=== PATIENT | female | born 1950 | race Caucasian/White ===

== ENCOUNTER 2017-05-17 08:28 | Inpatient (IN) | payer MEDICARE, OTHER ==
[~2017-05-17] VITALS: Ht 160 cm; Wt 91.6 kg
[~2017-05-17 08:28] MED LIST: IBUPROFEN600 MG ORAL; LOSARTAN-HCTZ1 EAC1 ORAL; METOPROLOL TART25 MG ORAL; TAMIFLU75 MG PO; VASCEPA1 GM PO
--- NOTE | 2017-05-17 08:54 | Emergency Room Report ---
History of Present Illness General Chief Complaint: Abdominal Pain Source: Patient, Medical Record Present Illness HPI Patient presents with complaints of blood in the stool and lower abdominal pain Patient has been on oral antibiotics for several days for an intestinal infection Patient also was having right-sided flank pain several days ago Denies any chest pain Denies any shortness of breath pain in the lower abdomen is 7/10 Patient has increased nausea Denies any vomiting or diarrhea denies any fevers or chills Allergies: Coded Allergies: No Known Allergies (Unverified , 09/22/12) Patient History Past Medical History: see triage record Pertinent Family History: none Reviewed Nursing Documentation: PMH: Agreed, PSxH: Agreed Nursing Documentation-PMH Past Medical History: No History, Except For Hx Cardiac Problems: Yes Hx Hypertension: Yes Hx Pacemaker: No Hx Cancer: No Hx Gastrointestinal Problems: Yes - gastritis Hx Neurological Problems: No Hx Cerebrovascular Accident: No Hx Transient Ischemic Attacks: No Hx Dementia: No Hx Alzheimer's Disease: No Hx Parkinson's Disease: No Hx Meningitis: No Hx Encephalitis: No Hx Seizures: No Hx Epilepsy: No Hx Multiple Sclerosis: No Hx Cerebral Palsy: No Hx Amyotrophic Lat Sclerosis: No Hx Guillian-[place] Syndrome: No Hx Paralysis: No Hx Peripheral Neuropathy: No Hx Spinal Cord Injury: No Hx Head Trauma: No Hx Traumatic Brain Injury: No Hx Memory Loss: No Hx Concentration Difficulty: No Hx Speech Problem: No Hx Tremors: No Hx Vertigo: No Hx Dizziness: Yes Hx Syncope: No Hx Headaches: No Hx Aphasia: No Hx Dysphasia: No Hx Numbness: No Hx Weakness: No Hx Fatigue: No Hx Neurologic Surgery: No Hx Brain Shunt: No Review of Systems All Other Systems: negative except mentioned in HPI Physical Exam Vital Signs Date Time Temp Pulse Resp B/P (MAP) Pulse Ox O2 Delivery O2 Flow Rate FiO2 05/17/17 08:31 97.5 75 20 151/83 98 Room Air Sp02 EP Interpretation: reviewed, normal General Appearance: mild distress - Patient appears uncomfortable and in acute pain Head: normocephalic, atraumatic Eyes: bilateral eye PERRL, bilateral eye EOMI ENT: hearing grossly normal, normal pharynx, TMs + canals normal, uvula midline Neck: full range of motion, supple, no meningismus, no bony tend Respiratory: lungs clear, normal breath sounds, no rhonchi, no respiratory distress, no retraction, no accessory muscle use Cardiovascular #1: normal peripheral pulses, regular rate, rhythm, no edema, no gallop, no JVD, no murmur Gastrointestinal: normal bowel sounds, soft, no mass, no organomegaly, non- distended, no guarding, no hernia, no pulsatile mass, no rebound, tenderness - Patient is tender diffusely in the lower abdominal region no obvious rebound, patient has had a previous appendectomy, bowel sounds are present Rectal: other - blood in stool, no active hemmorrhage Genitourinary: no CVA tenderness Musculoskeletal: normal inspection Neurologic: oriented x3, responsive, control room helper III-XII nml as tested, motor strength/ tone normal, sensory intact Psychiatric: mood/affect normal Skin: warm/dry, palpation normal, other - poor turgor Lymphatic: normal inspection, no adenopathy Medical Decision Making Diagnostic Impression: Primary Impression: Abdominal pain Additional Impression: Pancreatitis ER Course Patient is a fairly complex patient with multiple differential to consideration including but not limited to cardiac cardiopulmonary and vascular emergencies Patient's blood work reveals elevated lipase level concerning for acute pancreatitis Patient's CT imaging does not reveal any obvious acute pathology Patient has had significant constipation Given the overall clinical evaluation patient's discomfort blood in the stool and the abnormal blood work patient is admitted for further inpatient care Labs Test 05/17/17 08:55 05/17/17 11:17 White Blood Count 6.0 K/UL (4.8-10.8) Red Blood Count 4.70 M/UL (4.20-5.40) Hemoglobin 13.0 G/DL (12.0-16.0) Hematocrit 39.5 % (37.0-47.0) Mean Corpuscular Volume 84 FL (80-99) Mean Corpuscular Hemoglobin 27.7 PG (27.0-31.0) Mean Corpuscular Hemoglobin Concent 32.9 G/DL (32.0-36.0) Red Cell Distribution Width 13.7 % (11.6-14.8) Platelet Count 254 K/UL (150-450) Mean Platelet Volume 5.5 FL (6.5-10.1) Neutrophils (%) (Auto) 53.0 % (45.0-75.0) Lymphocytes (%) (Auto) 37.2 % (20.0-45.0) Monocytes (%) (Auto) 5.2 % (1.0-10.0) Eosinophils (%) (Auto) 3.7 % (0.0-3.0) Basophils (%) (Auto) 1.0 % (0.0-2.0) Sodium Level 137 mEQ/L (135-145) Potassium Level 4.6 mEQ/L (3.4-4.9) Chloride Level 100 mEQ/L (98-107) Carbon Dioxide Level 24 mEQ/L (20-30) Anion Gap 13 (5-15) Blood Urea Nitrogen 20 mg/dL (7-23) Creatinine 1.0 mg/dL (0.5-0.9) Estimat Glomerular Filtration Rate 55.1 mL/min (>60) Glucose Level 135 mg/dL (74-106) Calcium Level 9.3 mg/dL (8.6-10.2) Total Bilirubin 0.7 mg/dL (0.0-1.2) Aspartate Amino Transf (AST/SGOT) 25 U/L (5-40) Alanine Aminotransferase (ALT/SGPT) 17 U/L (3-33) Alkaline Phosphatase 94 U/L (35-104) Total Protein 7.4 g/dL (6.6-8.7) Albumin 4.0 g/dL (3.5-5.2) Globulin 3.4 g/dL Albumin/Globulin Ratio 1.1 (1.0-2.7) Lipase 111 U/L (< 60) Urine Color Pale yellow Urine Appearance Clear Urine pH 8 (4.5-8.0) Urine Specific [place] 1.010 (1.005-1.035) Urine Protein Negative (NEGATIVE) Urine Glucose (UA) Negative (NEGATIVE) Urine Ketones Negative (NEGATIVE) Urine Occult Blood Negative (NEGATIVE) Urine Nitrite Negative (NEGATIVE) Urine Bilirubin Negative (NEGATIVE) Urine Urobilinogen Normal MG/DL (0.0-1.0) Urine Leukocyte Esterase Negative (NEGATIVE) CT/MRI/US Diagnostic Results CT/MRI/US Diagnostic Results : Impression CT abdomen pelvisImpression: Limited assessment of the GI tract due to lack of enteric contrast Mild rectal distention by stool, mild rectal fecal impaction not excludable Large hiatal hernia, also previously demonstrated Fatty liver Somewhat distended bladder Nonvisualized appendix. No findings to suggest acute appendicitis Left renal parapelvic cysts. Right renal subcentimeter low-attenuation lesion, too small to characterize, most likely benign simple cyst. 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 May 17, 2017 08:54
[2017-05-17 09:00] VITALS: BP 136/76
[2017-05-17] MEDS ORDERED: Morphine Sulfate 4mg/ml Inj IVP ONE (09:00)
[2017-05-17 09:29] LABS: EOSINOPHILS % (AUTO) 3.7 % (0.0-3.0); LYMPHOCYTES % (AUTO) 37.2 % (20.0-45.0); MEAN CORPUSCULAR HEMOGLOBIN 27.7 PG (27.0-31.0); MEAN CORPUSCULAR HGB CONC 32.9 G/DL (32.0-36.0); MEAN CORPUSCULAR VOLUME 84 FL (80-99); MEAN PLATELET VOLUME 5.5 FL (6.5-10.1); MONOCYTES % (AUTO) 5.2 % (1.0-10.0); PLATELET COUNT 254 K/UL (150-450); RED CELL DISTRIBUTION WIDTH 13.7 % (11.6-14.8)
[2017-05-17 09:37] LABS: ALBUMIN/GLOBULIN RATIO 1.1 (1.0-2.7); CALCIUM 9.3 mg/dL (8.6-10.2); GLOMERULAR FILTRATION RATE 55.1 mL/min (>60); POTASSIUM 4.6 mEQ/L (3.4-4.9); TOTAL PROTEIN 7.4 g/dL (6.6-8.7)
[2017-05-17] MEDS ORDERED: LEVOTHYROXINE25 MCG PO (10:40)
[2017-05-17] MEDS ORDERED: LOSARTAN-HCTZ1 EACH PO (10:40)
[2017-05-17] MEDS ORDERED: BUSPAR10 MG PO (10:40)
[2017-05-17] MEDS ORDERED: OMEPRAZOLE20 M2 PO (10:40)
[2017-05-17] MEDS ORDERED: INDERAL20 MG PO (10:40)
--- NOTE | 2017-05-17 10:51 | Diagnostic Imaging Report ---
Clinical Indication: Blood in stool and lower abdominal pain, right-sided flank pain Technique: No oral contrast utilized, per emergency room physician request IV administration nonionic contrast. Venous phase spiral acquisition obtained through the abdomen and pelvis. Multiplanar reconstructions were generated. Total dose length product 918 mGycm. CTDIvol(s) 19 mGy. Dose reduction achieved using automated exposure control Comparison: 11/20/2010 Findings: Lack of enteric contrast limits assessment of the GI tract. The rectum is mildly distended by stool. This is a new finding. No evidence of diverticulosis or diverticulitis. The appendix is not definitely identified. However, there are no findings to suggest acute appendicitis. No small bowel distention. No free or loculated intraperitoneal air or fluid. Large hiatal hernia is again demonstrated. The remainder of the stomach is unremarkable. The duodenum is unremarkable. As previously, the liver is diffusely hypoattenuating, consistent with fatty change. No focal abnormality. The gallbladder, bile ducts, pancreas on the spleen, adrenals are unremarkable. The right kidney demonstrates a subcentimeter low-attenuation lesion which is too small to characterize. The left kidney demonstrates numerous parapelvic cysts. No solid renal parenchymal abnormalities. No renal or ureteral calculi, hydronephrosis, or hydroureter. The bladder is somewhat distended. The uterus and adnexal structures are unremarkable. No pelvic mass or adenopathy. The included lung bases are clear. The bones are remarkable for the presence multiple thoracic vertebral body hemangiomas. Impression: Limited assessment of the GI tract due to lack of enteric contrast Mild rectal distention by stool, mild rectal fecal impaction not excludable Large hiatal hernia, also previously demonstrated Fatty liver Somewhat distended bladder Nonvisualized appendix. No findings to suggest acute appendicitis Left renal parapelvic cysts. Right renal subcentimeter low-attenuation lesion, too small to characterize, most likely benign simple cyst. 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
[2017-05-17 11:00] VITALS: BP 101/73
[2017-05-17] MEDS ORDERED: Fleet's Enema 133ml RECTAL ONE ×2 (11:00→16:00)
[2017-05-17 11:37] LABS: APPEARANCE,URINE CLEAR; KETONES,URINE NEGATIVE (NEGATIVE); LEUKOCYTE ESTERASE ,URINE NEGATIVE (NEGATIVE); NITRITE,URINE NEGATIVE (NEGATIVE); PH,URINE 8 (4.5-8.0); PROTEIN,URINE NEGATIVE (NEGATIVE); UROBILINOGEN,URINE NORMAL MG/DL (0.0-1.0)
[2017-05-17 12:07] VITALS: BP 97/47
[2017-05-17] MEDS ORDERED: Morphine Sulfate 2mg/ml Inj IVP PRN (13:15)
[2017-05-17] MEDS: Fluconazole 100mg tab ORAL SCH (15:29)
[2017-05-17 16:00] VITALS: BP 119/60
--- NOTE | 2017-05-17 17:44 | General Progress Note ---
Assessment/Plan Assessment/Plan GI Consult - dictation to follow - poor historian, due to language barrier and apparent anxiety - Chronic constipation and vague abd pain - rectal bleeding likely hemorrhoidal - s/p EGD/Colon 01/2013 - negative CT. Doubt mild elevation of lipase significant Recommendations - bowel regimen - Mag citrate in am - check stool OB - get prior colonoscopy report next week from Dr. Deandre Lui - will consider repeat colonoscopy as outpatient Thank you Deshawn Carrington MD Subjective Allergies: Coded Allergies: No Known Allergies (Unverified , 09/22/12) Objective Last 24 Hour Vital Signs Date Time Temp Pulse Resp B/P (MAP) Pulse Ox O2 Delivery O2 Flow Rate FiO2 05/17/17 12:18 60 16 97/67 99 Room Air 05/17/17 12:07 97.3 60 18 97/47 97 Room Air 05/17/17 11:00 97.8 63 19 101/73 99 Room Air 05/17/17 09:38 97.8 05/17/17 09:00 98.2 76 25 136/76 99 Room Air 05/17/17 08:31 97.5 75 20 151/83 98 Room Air Intake and Output 05/17/17 05/18/17 19:00 07:00 Output Total 820 ml Balance -820 ml Output Urine Total 820 ml # Bowel Movements 1 Laboratory Tests 05/17/17 08:55: White Blood Count 6.0, Red Blood Count 4.70, Hemoglobin 13.0, Hematocrit 39.5, Mean Corpuscular Volume 84, Mean Corpuscular Hemoglobin 27.7, Mean Corpuscular Hemoglobin Concent 32.9, Red Cell Distribution Width 13.7, Platelet Count 254, Mean Platelet Volume 5.5L, Neutrophils (%) (Auto) 53.0, Lymphocytes (%) (Auto) 37.2, Monocytes (%) (Auto) 5.2, Eosinophils (%) (Auto) 3.7H, Basophils (%) (Auto ) 1.0, Sodium Level 137, Potassium Level 4.6, Chloride Level 100, Carbon Dioxide Level 24, Anion Gap 13, Blood Urea Nitrogen 20, Creatinine 1.0H, Estimat Glomerular Filtration Rate 55.1, Glucose Level 135H, Calcium Level 9.3, Total Bilirubin 0.7, Aspartate Amino Transf (AST/SGOT) 25, Alanine Aminotransferase (ALT/SGPT) 17, Alkaline Phosphatase 94, Total Protein 7.4, Albumin 4.0, Globulin 3.4, Albumin/Globulin Ratio 1.1, Lipase 111H 05/17/17 11:17: Urine Color Pale yellow, Urine Appearance Clear, Urine pH 8, Urine Specific [place] 1.010, Urine Protein Negative, Urine Glucose (UA) Negative, Urine Ketones Negative, Urine Occult Blood Negative, Urine Nitrite Negative, Urine Bilirubin Negative, Urine Urobilinogen Normal, Urine Leukocyte Esterase Negative Height (Feet): 5 Height (Inches): 3.00 Weight (Pounds): 202 PAODESHAWN CASTRO May 17, 2017 17:44
[2017-05-17] MEDS: Docusate 100mg cap ORAL SCH (20:28)
[2017-05-17] MEDS ORDERED: MICONAZOLE VAG VAGIN SCH (21:00)
[2017-05-17] MEDS ORDERED: Miralax 17gm pkt ORAL PRN (21:00)
[2017-05-17] MEDS: Miconazole Vag Cr 45gm Tube VAGIN SCH (22:24)
[2017-05-18] VITALS: BP 128/60
[2017-05-18 04:00] VITALS: BP 122/65
--- NOTE | 2017-05-18 06:00 | History and Physical Report ---
DATE OF ADMISSION: 05/17/2017 Reason For Admission: Abdominal pain and bright red blood per rectum. History Of Present Illness: This is a Beninese female, age 67, has a history of chronic constipation. She has had several days of abdominal pain in the lower quadrants. She noted some worsening symptoms this morning and some stool with blood on it. She denies nausea, vomiting, or dizziness. She was seen in the emergency room and admitted for further management. The patient had a colonoscopy in the last two years at [facility] by Dr. Deandre Salinas. She apparently did not have any significant findings. She does have chronic constipation however. Past Medical History: Further notable for hypothyroidism, on replacement therapy, osteoarthritis, and hypertension. MEDICATIONS: Prior to admission, reviewed and reconciled. ALLERGIES: None. SOCIAL HISTORY: Negative for smoking, alcohol, or substance abuse. FAMILY HISTORY: Noncontributory. Review Of Systems: No fevers or chills. No cough or sputum production. No loss of vision or hearing. No history of asthma or blood clots in the legs. No history of pancreatitis. No history of rheumatoid arthritis. No history of rheumatic fever. No history of myocardial infarction. Her hypertension is managed with medication. She has had elevated cholesterol in the past. There is no history of seizure or stroke. There is no history of diabetes. She is on low-dose thyroid replacement. PHYSICAL EXAMINATION: Vital Signs: Blood pressure 136/76 earlier, now 97/67, heart rate 60, and respiratory 16. Afebrile. HEENT: Normocephalic and atraumatic. Conjunctivae are pink. Sclerae are anicteric. Oropharynx clear. Mucous membranes moist. NECK: Supple. Jugular venous pressure normal. LUNGS: Clear. Chest wall without deformity. No breast masses. Cardiac: Regular rhythm and rate. Normal S1 and S2 with no murmur, rub, or gallop. Abdomen: Soft. Mildly tender in the lower quadrants bilaterally. No guarding or rebound. No pulsatile masses. EXTREMITIES: Good pulses. No edema. NEUROLOGIC: Nonfocal. Laboratory And Diagnostic Data: EKG, sinus bradycardia with no acute abnormalities. White count 6 and hemoglobin 13. BUN 20, creatinine 1.0, and glucose 135. Urinalysis with no active sediment. Lipase 111. IMPRESSION: 1. Abdominal pain. CT scan of the abdomen was negative. 2. Hemorrhoids. 3. Constipation. 4. Elevated lipase level of unclear significance. 5. Sinus bradycardia due to beta-enrique therapy. 6. Mild hypovolemia and dehydration with low range blood pressure in the setting of hypertension. PLAN: 1. Intravenous fluid hydration. 2. Serial hemoglobin. 3. Liquid diet. 4. GI consultation. 5. Hold antihypertensives. 6. Fluid challenge with lower range blood pressure. 7. Check thyroid panel. 8. We will review records from [facility] for definitive results of recent colonoscopy and endoscopy. Uziel Ybarra M.D. DR: JUSTICE JOB#: [id number] CC:
[2017-05-18] MEDS: Levothyroxine 25mcg tab ORAL SCH (06:44)
--- NOTE | 2017-05-18 06:45 | Consultation ---
DATE OF CONSULTATION: 05/17/2017 GASTROLOGY CONSULTATION Chief Complaint: "I was asked to see this patient for evaluation of abdominal issues." History Of Present Illness: The patient is a 67-year-old Omani woman, who speaks very broken Wolof with the daughter at bedside, who comes into the hospital due to abdominal issues. The patient is somewhat vague, but apparently she has had a longstanding history of constipation dating back years. She has had endoscopy and colonoscopy about a year ago by Dr. Deandre Lui in January at the surgical center. The results are not available, but the patient was not told about anything significant. More recently, she had some bouts of abdominal pain, which she worked up as an outpatient. She was given some antibiotics because of blood in the urine, but then subsequently noted some blood in the stool, which was scant in amount. She came to the emergency room here to [facility] and her blood count was normal, but she was admitted for further workup and evaluation. The patient's main complaint now is constipation and some abdominal discomfort. She also has some of red blood in the stool. Past Medical History: Remarkable for history of gastritis, history of coronary syndrome, abdominal gas pains, history of pancreatitis, anxiety, hypertension, hypothyroidism, and gastritis. FAMILY HISTORY: Noncontributory. Social History: The patient is O[place]i speaking and lives in [facility] [place] with her daughter. Medications: Acetaminophen, docusate, Diflucan, magnesium citrate, miconazole, morphine, and MiraLAX. ALLERGIES: None. REVIEW OF SYSTEMS: Otherwise negative. PHYSICAL EXAMINATION: General: Pleasant Omani woman, seen in the room with her daughter at bedside. HEENT: Normocephalic and atraumatic. Sclerae anicteric. Oropharynx clear. NECK: Supple. CHEST: Clear to auscultation. CARDIOVASCULAR: Regular rate. Abdomen: Obese, soft with some right lower quadrant. Mild tenderness to palpation. EXTREMITIES: Revealed no edema. Rectal Exam: Done in the presence of a nurse. It was difficult due to patient's anxiety and jumping during the exam. A proper exam could not be performed. Laboratory And Diagnostic Data: Laboratory data and imaging studies were noted. Assessment: This patient presents with what appears to be chronic constipation and perhaps some degree of chronic abdominal discomfort due to this process. She has had some hematochezia, which is scant and red in color and appears to be hemorrhoidal in nature. The patient complains of perianal irritation and does not want to get laxatives tonight, but she will accept some for tomorrow. In the meantime, her abdominal exam and laboratory parameters will be followed. I will try to obtain her colonoscopy result next week and if necessary can be repeated as an outpatient. The patient may need long-term bowel regimen. Recommendations: Per above discussion and per orders written in the chart. Thank you for asking me to participate in the care of this patient. Deshawn Carrington M.D. DR: PRECIOUS JOB#: [id number] CC: MARCELINA
[2017-05-18 06:47] LABS: BASOPHILS % (AUTO) 0.7 % (0.0-2.0); EOSINOPHILS % (AUTO) 2.9 % (0.0-3.0); LYMPHOCYTES % (AUTO) 46.9 % (20.0-45.0); MEAN CORPUSCULAR HEMOGLOBIN 27.9 PG (27.0-31.0); MEAN CORPUSCULAR HGB CONC 32.6 G/DL (32.0-36.0); MEAN CORPUSCULAR VOLUME 86 FL (80-99); MEAN PLATELET VOLUME 5.3 FL (6.5-10.1); MONOCYTES % (AUTO) 6.7 % (1.0-10.0); NEUTROPHILS % (AUTO) 42.8 % (45.0-75.0); PLATELET COUNT 218 K/UL (150-450); RED BLOOD COUNT 4.12 M/UL (4.20-5.40); RED CELL DISTRIBUTION WIDTH 13.9 % (11.6-14.8); WHITE BLOOD COUNT 5.7 K/UL (4.8-10.8)
[2017-05-18] MEDS ORDERED: Magnesium Citrate Liq Btl ORAL ONE (07:00)
[2017-05-18 07:17] LABS: ALANINE AMINOTRANSFERASE 13 U/L (3-33); ALBUMIN/GLOBULIN RATIO 1.3 (1.0-2.7); AMYLASE 27 U/L (10-110); ANION GAP 11 (5-15); ASPARTATE AMINO TRANSFERASE 16 U/L (5-40); CALCIUM 8.3 mg/dL (8.6-10.2); CARBON DIOXIDE 26 mEQ/L (20-30); CHLORIDE 105 mEQ/L (98-107); CREATININE 0.9 mg/dL (0.5-0.9); GLOMERULAR FILTRATION RATE > 60 mL/min (>60); HEMOLYSIS 2; LIPASE 64 U/L (< 60); POTASSIUM 3.7 mEQ/L (3.4-4.9); SODIUM 142 mEQ/L (135-145); TOTAL PROTEIN 6.1 g/dL (6.6-8.7)
[2017-05-18 09:15] VITALS: BP 107/53
--- NOTE | 2017-05-18 09:17 | General Progress Note ---
Assessment/Plan Problem List: (1) Anemia ICD Codes: D64.9 - Anemia, unspecified SNOMED: 473932125 (2) Constipation ICD Codes: K59.00 - Constipation, unspecified SNOMED: 20866617 (3) Abdominal pain ICD Codes: R10.9 - Unspecified abdominal pain SNOMED: 82181412 Assessment/Plan anemia work up laxatives out patient GI procedures per Dr. Jimenez Subjective ROS Limited/Unobtainable: Yes Allergies: Coded Allergies: No Known Allergies (Unverified , 09/22/12) Subjective had a BM feeling better Objective Last 24 Hour Vital Signs Date Time Temp Pulse Resp B/P (MAP) Pulse Ox O2 Delivery O2 Flow Rate FiO2 05/18/17 04:00 97.2 76 18 122/65 94 Room Air 05/18/17 00:00 97.9 70 18 128/60 93 Room Air 05/17/17 22:54 97.9 05/17/17 16:00 97.9 71 19 119/60 95 Room Air 05/17/17 12:18 60 16 97/67 99 Room Air 05/17/17 12:07 97.3 60 18 97/47 97 Room Air 05/17/17 11:00 97.8 63 19 101/73 99 Room Air 05/17/17 09:38 97.8 Laboratory Tests 05/17/17 11:17: Urine Color Pale yellow, Urine Appearance Clear, Urine pH 8, Urine Specific [place] 1.010, Urine Protein Negative, Urine Glucose (UA) Negative, Urine Ketones Negative, Urine Occult Blood Negative, Urine Nitrite Negative, Urine Bilirubin Negative, Urine Urobilinogen Normal, Urine Leukocyte Esterase Negative 05/18/17 05:35: White Blood Count 5.7, Red Blood Count 4.12L, Hemoglobin 11.5L, Hematocrit 35.2L , Mean Corpuscular Volume 86, Mean Corpuscular Hemoglobin 27.9, Mean Corpuscular Hemoglobin Concent 32.6, Red Cell Distribution Width 13.9, Platelet Count 218, Mean Platelet Volume 5.3L, Neutrophils (%) (Auto) 42.8L, Lymphocytes (%) (Auto) 46.9H, Monocytes (%) (Auto) 6.7, Eosinophils (%) (Auto) 2.9, Basophils (%) (Auto) 0.7, Sodium Level 142, Potassium Level 3.7, Chloride Level 105, Carbon Dioxide Level 26, Anion Gap 11, Blood Urea Nitrogen 16, Creatinine 0.9, Estimat Glomerular Filtration Rate > 60, Glucose Level 110H, Calcium Level 8.3L, Total Bilirubin 0.7, Aspartate Amino Transf (AST/SGOT) 16, Alanine Aminotransferase (ALT/SGPT) 13, Alkaline Phosphatase 90, Total Protein 6.1L, Albumin 3.5, Globulin 2.6, Albumin/Globulin Ratio 1.3, Amylase Level 27, Lipase 64H, Thyroid Stimulating Hormone (TSH) 2.850 05/18/17 07:00: Stool Occult Blood [Pending] Height (Feet): 5 Height (Inches): 3.00 Weight (Pounds): 202 General Appearance: alert EENT: normal ENT inspection Neck: supple Cardiovascular: normal rate Respiratory/Chest: lungs clear Abdomen: normal bowel sounds, non tender, soft Extremities: non-tender GENARO WHITFIELD May 18, 2017 09:17
[2017-05-18] MEDS: Docusate 100mg cap ORAL SCH ×2 (11:43→17:40)
[2017-05-18] MEDS: Fluconazole 100mg tab ORAL SCH (11:43)
[2017-05-18 13:04] VITALS: BP 108/55
[2017-05-18 17:51] VITALS: BP 121/62
[2017-05-18 20:00] VITALS: BP 132/63
[2017-05-18] MEDS: Miconazole Vag Cr 45gm Tube VAGIN SCH (20:48)
[2017-05-19] VITALS: BP 102/50
[2017-05-19 04:00] VITALS: BP 110/53
--- NOTE | 2017-05-19 06:00 | Progress Note ---
INTERNAL MEDICINE PROGRESS NOTE Subjective: The patient had a bowel movement. She feels better. Of note, all pain has decreased significantly. The patient does complain of some dyspepsia and acid sensation in the morning. OBJECTIVE: Vital Signs: Blood pressure 122/65, pulse 76, respiratory rate 18, afebrile. NECK: Supple. LUNGS: Clear. CARDIAC: Regular normal S1, S2. ABDOMEN: Soft. No focal tenderness. No edema. LABORATORY DATA: Lipase 64, amylase normal, TSH 2.5. IMPRESSION: 1. Constipation. 2. Abdominal pain. 3. Gastroesophageal reflux. PLAN: 1. Follow up occult blood test of the stool. 2. Continue hydration and bowel regimen. 3. Add proton pump inhibitor. 4. We will review prior records regarding colonoscopy findings and endoscopy findings done by Dr. Salinas in the past. 5. Discharge planning to follow. 6. Serial hemoglobin levels will be checked. Uziel Ybarra M.D. DR: SUHAIL JOB#: [id number] CC:
[2017-05-19] MEDS: Levothyroxine 25mcg tab ORAL SCH (06:38)
[2017-05-19 07:46] LABS: BASOPHILS % (AUTO) 1.3 % (0.0-2.0); EOSINOPHILS % (AUTO) 3.7 % (0.0-3.0); LYMPHOCYTES % (AUTO) 46.3 % (20.0-45.0); MEAN CORPUSCULAR HEMOGLOBIN 27.2 PG (27.0-31.0); MEAN CORPUSCULAR HGB CONC 31.6 G/DL (32.0-36.0); MEAN CORPUSCULAR VOLUME 86 FL (80-99); MEAN PLATELET VOLUME 5.5 FL (6.5-10.1); MONOCYTES % (AUTO) 5.6 % (1.0-10.0); NEUTROPHILS % (AUTO) 43.2 % (45.0-75.0); PLATELET COUNT 220 K/UL (150-450); RED BLOOD COUNT 4.39 M/UL (4.20-5.40); RED CELL DISTRIBUTION WIDTH 13.9 % (11.6-14.8); WHITE BLOOD COUNT 4.7 K/UL (4.8-10.8)
[2017-05-19 08:00] VITALS: BP 117/50
[2017-05-19] MEDS: Docusate 100mg cap ORAL SCH (08:17)
[2017-05-19] MEDS: Fluconazole 100mg tab ORAL SCH (08:17)
--- NOTE | 2017-05-19 09:57 | General Progress Note ---
Assessment/Plan Problem List: (1) Anemia ICD Codes: D64.9 - Anemia, unspecified SNOMED: 749881190 (2) Constipation ICD Codes: K59.00 - Constipation, unspecified SNOMED: 52147678 (3) Abdominal pain ICD Codes: R10.9 - Unspecified abdominal pain SNOMED: 21274213 Assessment/Plan anemia work up laxatives out patient GI procedures per Dr. Jimenez patient to dc with linzess Subjective ROS Limited/Unobtainable: Yes Allergies: Coded Allergies: No Known Allergies (Unverified , 09/22/12) Subjective had a BM feeling better Objective Last 24 Hour Vital Signs Date Time Temp Pulse Resp B/P (MAP) Pulse Ox O2 Delivery O2 Flow Rate FiO2 05/19/17 08:00 97.5 64 17 117/50 94 Room Air 05/19/17 04:00 97.3 68 18 110/53 92 Room Air 05/19/17 00:00 97.3 69 18 102/50 92 Room Air 05/18/17 20:00 97.7 65 18 132/63 94 Room Air 05/18/17 17:51 98.4 64 18 121/62 95 Room Air 05/18/17 13:04 87.9 64 19 108/55 96 Room Air Laboratory Tests 05/19/17 05:20: White Blood Count 4.7L, Red Blood Count 4.39, Hemoglobin 12.0, Hematocrit 37.8, Mean Corpuscular Volume 86, Mean Corpuscular Hemoglobin 27.2, Mean Corpuscular Hemoglobin Concent 31.6L, Red Cell Distribution Width 13.9, Platelet Count 220, Mean Platelet Volume 5.5L, Neutrophils (%) (Auto) 43.2L, Lymphocytes (%) (Auto) 46.3H, Monocytes (%) (Auto) 5.6, Eosinophils (%) (Auto) 3.7H, Basophils (%) ( Auto) 1.3, Iron Level 42, Total Iron Binding Capacity 337, Percent Iron Saturation 12L, Unsaturated Iron Binding 295, Carcinoembryonic Antigen 0.5 Height (Feet): 5 Height (Inches): 3.00 Weight (Pounds): 202 General Appearance: alert EENT: normal ENT inspection Neck: supple Cardiovascular: normal rate Respiratory/Chest: lungs clear Abdomen: normal bowel sounds, non tender, soft Extremities: non-tender VOSOGHI,GENARO May 19, 2017 09:57
[2017-05-19] MEDS ORDERED: COLACE100 MG ORAL (11:39)
[2017-05-19] MEDS ORDERED: ZANTAC150 MG ORAL (11:40)
[2017-05-19] MEDS ORDERED: MIRALAX17 G2 ORAL (11:40)
[2017-05-19] MEDS ORDERED: LINZESS145 MCG PO (11:41)
[2017-05-19 12:00] VITALS: BP 123/63
--- NOTE | 2017-05-19 15:56 | Cardiology Report ---
APPROVED REPORT EKG Measurement Heart [id number] Sinus bradycardia Otherwise normal ECG
--- NOTE | 2017-05-21 08:28 | Discharge Summary ---
Discharge Summary Hospital Course Date of Admission May 17, 2017 at 10:32 Date of Discharge May 19, 2017 at 12:36 Admitting Diagnosis abdominal pain, pancreatitis HPI Tejal Daugherty is a 67 year old female who was admitted on May 17, 2017 at 10:32 for Abdominal Pain,Pancreatitis Hospital Course dc summary #[id number] Discharge Medications Continued Medications: Buspirone Hcl* (Buspar*) 10 Mg Tablet 10 MG PO BID Docusate Sodium* (Colace*) 100 Mg Capsule 100 MG ORAL DAILY, CAP Ibuprofen* (Motrin*) 600 Mg Tablet 600 MG ORAL Q8H PRN for For Pain, #20 TAB Icosapent Ethyl (Vascepa) 1 Gm Capsule 1 GM PO BID, CAP Levothyroxine Sodium* (Levothyroxine Sodium*) 25 Mcg Tablet 25 MCG PO DAILY Linaclotide (Linzess) 145 Mcg Capsule 145 MCG PO, CAP Losartan/Hydrochlorothiazide (Losartan-Hctz 100-25 Mg Tab) 1 Each Tablet 1 TAB ORAL DAILY, TAB Losartan/Hydrochlorothiazide (Losartan-Hctz 100-12.5 Mg Tab) 1 Each Tablet MG PO DAILY Metoprolol Tartrate* (Metoprolol Tartrate*) 25 Mg Tablet 25 MG ORAL DAILY, TAB Omeprazole (Omeprazole) 20 Mg Capsule.dr 20 MG PO BID Oseltamivir Phosphate (Tamiflu) 75 Mg Cap 75 MG PO BID, #10 CAP Take 1 capsule by mouth every 12 hours. Polyethylene Glycol 3350* (Miralax*) 17 Gm Powd.pack 17 GM ORAL DAILY PRN for Constipation, PACKET Propranolol HCl (Propranolol HCl) 20 Mg Tablet 20 MG PO DAILY Ranitidine Hcl* (Zantac*) 150 Mg Tablet 150 MG ORAL DAILY, #30 TAB 0 Refills Discharge Condition Upon Discharge: stable Discharge Disposition Patient was discharged to Home (01) Discharge Diagnoses: Discharge Instructions Discharge Instructions Special Instructions I have been assigned to complete a D/C Summary on this account. I was not involved in the patient management Jovita Rogers NP (Vanchtein) May 21, 2017 08:28
--- NOTE | 2017-05-22 09:16 | Discharge Summary 2 SIG ---
DATE OF ADMISSION: 05/17/2017 DATE OF DISCHARGE: 05/19/2017 Reason For Admission: 67-year-old Welsh-speaking female with a history of chronic constipation presented with abdominal pain in lower quadrant for few days. She noted worsening symptoms and in the morning noted blood in the stool. She denied nausea, vomiting, dizziness. She denied fever and chills. The patient had a colonoscopy in [address] [facility] without any significant findings as per patient. Past medical history significant for hypertension, osteoarthritis, and hypothyroidism. The patient admitted to having chronic constipation. Workup in the emergency room was essentially negative. No leukocytosis. Stable hemoglobin and hematocrit. CT of the abdomen and pelvis revealed mild rectal distention by stool, mild rectal fecal impaction was not excludable, large hiatal hernia, fatty liver, otherwise no significant findings. Noted elevated liapse ADMITTING DIAGNOSES: : 1. Abdominal pain. 2. Chronic constipation. 3. Rectal bleeding, likely hemorrhoidal. 4. Sinus bradycardia, likely related to beta-enrique therapy. 5. Elevated lipase of unknown significance. 6. Dehydration. Hospital Course: The patient was admitted. The patient was started on IV fluids. Fluid challenge provided for low blood pressure. Antihypertensive medications were on hold. Blood pressure stabilized. The patient was started on the liquid diet as tolerated. Hemoglobin and hematocrit were closely monitored. GI specialist seen and evaluated the patient. CT of the abdomen and pelvis was reviewed by GI specialist, who stated that it was essentially negative. The patient was started on PPI. Stool OB was positive x1. Bowel regimen instituted. Pain management was addressed . Patient had bowel movement, no further hematochezia. Noted small decrease in the hemoglobin and hematocrit. Anemia workup revealed stable iron. CEA within normal limits. TSH within normal limits. Lipase trending down from 111 on admission to 64. The patient was discharged on Linzess, specifically designed for chronic constipation. The patient was stable for discharge home. The patient to followup with GI for outpatient GI procedure. FINAL DIAGNOSES: 1. Abdominal pain. 2. Chronic constipation. 3. Rectal bleeding likely hemorrhoidal. 4. Dehydration, resolved 5. Mild anemia. 6. Gastroesophageal reflux disease. DISCHARGE MEDICATIONS: See medication reconciliation list. Discharge Instructions: The patient was discharged home. Followup with primary medical doctor. Followup with GI specialist for outpatient GI procedure. Uziel Ybarra M.D. I have been assigned to dictate discharge summary on this account and I was not involved in the patient's management. Jovita HainesCorbin davalos DR: CARLIE JOB#: [id number] CC: MARCELINA
== END 2017-05-19 12:36 | disposition home or self-care (01) | DRG 392 ==
LOC: EMR 08:54 → 4W 10:32 → EDBEDREQ 11:03
DX: R10.9 Unspecified abdominal pain (principal); K76.0 Fatty (change of) liver, not elsewhere classified; R00.1 Bradycardia, unspecified; D64.9 Anemia, unspecified; K59.09 Other constipation; K64.9 Unspecified hemorrhoids; E86.0 Dehydration; E86.1 Hypovolemia; K21.9 Gastro-esophageal reflux disease without esophagitis
CPT/HCPCS: 36415; 74177; 80053; 81003; 82150; 82270; 82378; 83540; 83550; 83690; 84443; 85025; 93005; 99285; J2405

== ENCOUNTER 2019-05-12 14:47 | Emergency (ER) | payer MEDICARE, OTHER ==
[~2019-05-12] VITALS: Ht 160 cm; Wt 72.6 kg
[~2019-05-12 14:47] MED LIST changes: +BUSPAR10 MG PO; +COLACE100 MG ORAL; +INDERAL20 MG PO; +LEVOTHYROXINE25 MCG PO; +LINZESS145 MCG PO; +LOSARTAN-HCTZ1 EACH PO; +MIRALAX17 G2 ORAL; +OMEPRAZOLE20 M2 PO; +ZANTAC150 MG ORAL
[2019-05-12] MEDS ORDERED: AMOXICILLI250 MG/5 M ORAL (15:21)
[2019-05-12] MEDS ORDERED: ACETAMINOPHEN-1 EAC1 ORAL (15:21)
[2019-05-12] MEDS ORDERED: LINZESS145 MCG PO (15:21)
[2019-05-12] MEDS ORDERED: VIBRAMYCIN100 MG ORAL (15:21)
[2019-05-12] MEDS ORDERED: Isovue-300 100ml vial INJ PRN (15:45)
[2019-05-12] MEDS ORDERED: Morphine Sulfate 4mg/ml Inj (IV USE ONLY) IVP ONE (15:45)
[2019-05-12 15:54] VITALS: BP 143/55
[2019-05-12 16:43] VITALS: BP 143/55
[2019-05-12 16:51] LABS: BASOPHILS % (AUTO) 0.8 % (0.0-2.0); EOSINOPHILS % (AUTO) 1.4 % (0.0-3.0); HEMOGLOBIN 13.2 G/DL (12.0-16.0); LYMPHOCYTES % (AUTO) 34.1 % (20.0-45.0); MEAN CORPUSCULAR VOLUME 74 FL (80-99); MONOCYTES % (AUTO) 2.6 % (1.0-10.0); NEUTROPHILS % (AUTO) 61.1 % (45.0-75.0); PLATELET COUNT 262 K/UL (150-450); RED BLOOD COUNT 5.37 M/UL (4.20-5.40); WHITE BLOOD COUNT 10.1 K/UL (4.8-10.8)
[2019-05-12 17:04] LABS: ANION GAP 13 mmol/L (5-15); BLOOD UREA NITROGEN 18 mg/dL (7-18); CALCIUM 9.5 MG/DL (8.5-10.1); CARBON DIOXIDE 21 MMOL/L (21-32); CHLORIDE 106 MMOL/L (98-107); CREATININE 0.9 MG/DL (0.55-1.30); POTASSIUM 4.8 MMOL/L (3.5-5.1); SODIUM 140 MMOL/L (136-145)
[2019-05-12 17:05] LABS: APPEARANCE,URINE CLEAR; BILIRUBIN, URINE NEGATIVE (NEGATIVE); COLOR,URINE PALE YELLOW; GLUCOSE, URINE (UA) NEGATIVE (NEGATIVE); KETONES,URINE NEGATIVE (NEGATIVE); LEUKOCYTE ESTERASE ,URINE 2+ (NEGATIVE); NITRITE,URINE NEGATIVE (NEGATIVE); PH,URINE 7 (4.5-8.0); PROTEIN,URINE NEGATIVE (NEGATIVE); UROBILINOGEN,URINE NORMAL MG/DL (0.0-1.0)
[2019-05-12 17:09] LABS: ALANINE AMINOTRANSFERASE 34 U/L (12-78); ALBUMIN 3.9 G/DL (3.4-5.0); ALBUMIN/GLOBULIN RATIO 1.1 (1.0-2.7); ALKALINE PHOSPHATASE 105 U/L (46-116); ASPARTATE AMINO TRANSFERASE 38 U/L (15-37); BILIRUBIN,TOTAL 0.2 MG/DL (0.2-1.0)
--- NOTE | 2019-05-12 18:11 | Diagnostic Imaging Report ---
Clinical Indication: Abdominal pain, constipation, back pain, nausea Technique: No oral contrast utilized, per emergency room physician request IV administration nonionic contrast. Venous phase spiral acquisition obtained through the abdomen and pelvis. Multiplanar reconstructions were generated. Total dose length product 1018.52 mGycm. CTDIvol(s) 19.28 mGy. Dose reduction achieved using automated exposure control Comparison: 05/17/2017 Findings: Large hiatal hernia is again demonstrated, incompletely included. No small bowel distention. No free or loculated intraperitoneal gas or fluid is evident. Mild to moderate retained stool slightly distends the rectum. There is slight infiltration of the perirectal fat. No cysts rectal wall thickening. No evidence of diverticulosis or diverticulitis. The appendix is not identified, but there are no findings to suggest acute appendicitis. The gallbladder is somewhat distended. The dome of the liver is incompletely imaged. The liver is somewhat enlarged and somewhat hypoattenuating, consistent with fatty change. The bile ducts, pancreas, spleen, adrenals are unremarkable. The kidneys demonstrate parapelvic cysts bilaterally. No renal or ureteral calculi, hydronephrosis, or hydroureter. Uterus and adnexal structures are unremarkable. No pelvic mass or adenopathy. Unremarkable bladder. The included lung bases demonstrate compressive atelectatic changes. The bones demonstrate degenerative spondylosis changes. Impression: Mild rectal distention by feces. No rectal wall thickening, but some perirectal infiltration could indicate a component of extrapleural proctitis No acute process otherwise Large hiatal hernia, also previously demonstrated Mild hepatomegaly and fatty liver Incidental findings as noted, including bilateral parapelvic renal cysts, compressive pulmonary parenchymal atelectatic changes, degenerative spondylosis This agrees with the preliminary interpretation provided overnight by [facility] teleradiology service. The CT scanner at [facility] is accredited by the [employer] and the scans are performed using protocols designed to limit radiation exposure to as low as reasonably achievable to attain images of sufficient resolution adequate for diagnostic evaluation.
[2019-05-12] MEDS ORDERED: COLACE100 MG ORAL (18:25)
[2019-05-12] MEDS ORDERED: MAGNESIUM CITR296 M1 PO (18:25)
[2019-05-12 18:40] VITALS: BP 146/62
[2019-05-12 18:41] VITALS: BP 146/62
--- NOTE | 2019-05-12 18:43 | NUR ---
ED Nurse Note: Patient nursed in cubicle 2. Complainng of abdomianl pain. Bowels last open 2 days ago. States she has felt constipatyed all day. States that she has been straining on the toilet. States that syhe has eaten small amounts. Not vomitted. Daughter present. Changed into gown and attached to monitor. Vitals recorded. IV access obtained by SOFY Hilario and labs drawn- voided on commode and sample semt to lab. Await Dr review. Anaglesic and medications as prescribed.
--- NOTE | 2019-05-12 18:46 | NUR ---
ER DISCHARGE NOTE: Patient is cleared to be discharged per ERMD, pt is aox4, on room air, with stable vital signs. pt was given dc and prescription instructions, pt was able to verbalize understanding, pt id band and iv site removed without complications. pt is able to ambulate with steady gait. pt took all belongings. Accompanied by daughter.
--- NOTE | 2019-05-12 22:13 | Emergency Room Report ---
History of Present Illness General Chief Complaint: Constipation Source: Patient, Family Member Present Illness HPI 69-year-old female presents ED for evaluation. Complaining of abdominal pain with nausea for the last 3 days. Pain is mid abdomen, sharp, 7 out of 10, nonradiating. Notes nausea. Denies vomiting. States she is been unable to have BM for the last 3 days. Is currently prescribed Tylenol with codeine by her PMD after being treated for a tooth infection with antibiotics. No other aggravating relieving factors. Denies any other associated symptoms Allergies: Coded Allergies: No Known Allergies (Unverified , 09/22/12) Patient History Past Medical History: HTN, other - skin cancer Pertinent Family History: none Social History: Denies: smoking, alcohol use, drug use Last Menstrual Period: na Now: No Immunizations: UTD Reviewed Nursing Documentation: PMH: Agreed; PSxH: Agreed Nursing Documentation-PMH Past Medical History: No History, Except For Hx Cardiac Problems: Yes Hx Hypertension: Yes Hx Pacemaker: No Hx Cancer: Yes - skin Hx Gastrointestinal Problems: Yes - constipation Hx Neurological Problems: No Hx Cerebrovascular Accident: No Hx Transient Ischemic Attacks: No Hx Dementia: No Hx Alzheimer's Disease: No Hx Parkinson's Disease: No Hx Meningitis: No Hx Encephalitis: No Hx Seizures: No Hx Epilepsy: No Hx Multiple Sclerosis: No Hx Cerebral Palsy: No Hx Amyotrophic Lat Sclerosis: No Hx Guillian-Jean Syndrome: No Hx Paralysis: No Hx Peripheral Neuropathy: No Hx Spinal Cord Injury: No Hx Head Trauma: No Hx Traumatic Brain Injury: No Hx Memory Loss: No Hx Concentration Difficulty: No Hx Speech Problem: No Hx Tremors: No Hx Vertigo: No Hx Dizziness: Yes Hx Syncope: No Hx Headaches: No Hx Aphasia: No Hx Dysphasia: No Hx Numbness: No Hx Weakness: No Hx Fatigue: No Hx Neurologic Surgery: No Hx Brain Shunt: No Review of Systems All Other Systems: negative except mentioned in HPI Physical Exam Vital Signs Date Time Temp Pulse Resp B/P (MAP) Pulse Ox O2 Delivery O2 Flow Rate FiO2 05/12/19 15:05 98.2 91 20 135/76 (95) 98 Room Air Sp02 EP Interpretation: reviewed, normal General Appearance: no apparent distress, alert, GCS 15, non-toxic Head: normocephalic, atraumatic Eyes: bilateral eye normal inspection, bilateral eye PERRL ENT: hearing grossly normal, normal pharynx, no angioedema, normal voice Neck: full range of motion, supple/symm/no masses Respiratory: chest non-tender, lungs clear, normal breath sounds, speaking full sentences Cardiovascular #1: regular rate, rhythm, no edema Cardiovascular #2: 2+ carotid (R), 2+ carotid (L), 2+ radial (R), 2+ radial (L) , 2+ dorsalis pedis (R), 2+ dorsalis pedis (L) Gastrointestinal: normal bowel sounds, soft, non-distended, no guarding, no rebound, tenderness - mid abdomen Rectal: deferred Genitourinary: normal inspection, no CVA tenderness Musculoskeletal: back normal, gait/station normal, normal range of motion, non- tender Neurologic: alert, oriented x3, responsive, motor strength/tone normal, sensory intact, speech normal Psychiatric: judgement/insight normal, memory normal, mood/affect normal, no suicidal/homicidal ideation Reflexes: 3+ bicep (R), 3+ bicep (L), 3+ tricep (R), 3+ tricep (L), 3+ knee (R) , 3+ knee (L) Lymphatic: no adenopathy Medical Decision Making Diagnostic Impression: Primary Impression: Constipation Qualified Codes: K59.00 - Constipation, unspecified ER Course Hospital Course 69-year-old F presents to ED with abdominal pain Differential diagnosis includes-appendicitis, cholecystitis, small bowel obstruction, gastritis, Clinical course Patient placed on stretcher. After initial history and physical I ordered labs , IV fluids, pain medications and CT Labs - no leukocytosis, electrolytes ok, LFTs normal CT- copious stool noted, no signs of obstruction Discussed findings with patient. No signs of obstruction. Has been seen here previously for constipation. Labs unremarkable. Vitals stable. Nontoxic appearing. Patient states she would prefer to be discharged with stool softeners. I explained that narcotic medication such as Tylenol No. 3 can precipitate constipation. States she will follow-up with her DMD I feel this is a highly complex case requiring extensive working including EKG/ Rhythm strip, Xray/CT/US, Blood/urine lab work, repeat exams while in ED, and administration of strong opiates/narcotics for pain control, admission to hospital or close patient follow up. Diagnosis - constipation Stable and discharged to home with Rx Mag citrate, Colace. instructed on high- fiber diet. Followup with PMD. Return to ED if symptoms recur or worsen Labs Test 05/12/19 16:21 05/12/19 16:45 White Blood Count 10.1 K/UL (4.8-10.8) Red Blood Count 5.37 M/UL (4.20-5.40) Hemoglobin 13.2 G/DL (12.0-16.0) Hematocrit 40.0 % (37.0-47.0) Mean Corpuscular Volume 74 FL (80-99) Mean Corpuscular Hemoglobin 24.5 PG (27.0-31.0) Mean Corpuscular Hemoglobin Concent 32.9 G/DL (32.0-36.0) Red Cell Distribution Width 13.0 % (11.6-14.8) Platelet Count 262 K/UL (150-450) Mean Platelet Volume 5.1 FL (6.5-10.1) Neutrophils (%) (Auto) 61.1 % (45.0-75.0) Lymphocytes (%) (Auto) 34.1 % (20.0-45.0) Monocytes (%) (Auto) 2.6 % (1.0-10.0) Eosinophils (%) (Auto) 1.4 % (0.0-3.0) Basophils (%) (Auto) 0.8 % (0.0-2.0) Sodium Level 140 MMOL/L (136-145) Potassium Level 4.8 MMOL/L (3.5-5.1) Chloride Level 106 MMOL/L (98-107) Carbon Dioxide Level 21 MMOL/L (21-32) Anion Gap 13 mmol/L (5-15) Blood Urea Nitrogen 18 mg/dL (7-18) Creatinine 0.9 MG/DL (0.55-1.30) Estimat Glomerular Filtration Rate > 60 mL/min (>60) Glucose Level 111 MG/DL (74-106) Calcium Level 9.5 MG/DL (8.5-10.1) Total Bilirubin 0.2 MG/DL (0.2-1.0) Aspartate Amino Transf (AST/SGOT) 38 U/L (15-37) Alanine Aminotransferase (ALT/SGPT) 34 U/L (12-78) Alkaline Phosphatase 105 U/L (46-116) Total Protein 7.6 G/DL (6.4-8.2) Albumin 3.9 G/DL (3.4-5.0) Globulin 3.7 g/dL Albumin/Globulin Ratio 1.1 (1.0-2.7) Lipase 229 U/L (73-393) Urine Color Pale yellow Urine Appearance Clear Urine pH 7 (4.5-8.0) Urine Specific [place] 1.005 (1.005-1.035) Urine Protein Negative (NEGATIVE) Urine Glucose (UA) Negative (NEGATIVE) Urine Ketones Negative (NEGATIVE) Urine Blood 4+ (NEGATIVE) Urine Nitrite Negative (NEGATIVE) Urine Bilirubin Negative (NEGATIVE) Urine Urobilinogen Normal MG/DL (0.0-1.0) Urine Leukocyte Esterase 2+ (NEGATIVE) Urine RBC 5-10 /HPF (0 - 2) Urine WBC 2-4 /HPF (0 - 2) Urine Squamous Epithelial Cells Few /LPF (NONE/OCC) Urine Bacteria Moderate /HPF (NONE) CT/MRI/US Diagnostic Results CT/MRI/US Diagnostic Results : Imaging Test Ordered: CT A/P Impression Large hiatal hernia. Moderate to large amount of stool in the rectum may represent fecal impaction. Mild perirectal fat stranding and small amount of presacral fluid. Hepatic steatosis. Hepatomegaly. Distended gallbladder. No calcified gallstones. Mild atrophy of the pancreas. No acute inflammation. Similar left greater than right peripelvic cysts. Small hypodensity in the right kidney is too small to definitively characterize. No obstructing stone identified. Appendix is not visualized, but no CT evidence of acute appendicitis. No bowel obstruction or inflammation. Small fat-containing umbilical hernia. Last Vital Signs Date Time Temp Pulse Resp B/P (MAP) Pulse Ox O2 Delivery O2 Flow Rate FiO2 05/12/19 18:41 98.3 58 16 146/62 96 Room Air Status: improved Disposition: HOME, SELF-CARE Condition: Stable Scripts Magnesium Citrate (MAGNESIUM CITRATE) 296 Ml Solution 150 ML PO DAILY for 2 Days, #296 ML Prov: Gray Allred MD 05/12/19 Docusate Sodium* (COLACE*) 100 Mg Capsule 100 MG ORAL THREE TIMES A DAY, #30 CAP Prov: Gray Allred MD 05/12/19 Referrals: NON PHYSICIAN (PCP) Patient Instructions: Constipation, Adult Gray Allred MD May 12, 2019 22:13
== END 2019-05-12 18:41 | disposition home or self-care (01) ==
LOC: EMR 15:36
DX: K59.00 Constipation, unspecified (principal); I10 Essential (primary) hypertension; Z85.9 Personal history of malignant neoplasm, unspecified; K44.9 Diaphragmatic hernia without obstruction or gangrene; K42.9 Umbilical hernia without obstruction or gangrene; K76.0 Fatty (change of) liver, not elsewhere classified
CPT/HCPCS: 36415; 74177; 80053; 81003; 83690; 85025; 87086; 87181; 96374; 96375; 99284; J2270; J2405; J7040; Q9967; S0028

== ENCOUNTER 2020-08-07 10:46 | Emergency (ER) | payer MEDICARE, OTHER ==
[~2020-08-07] VITALS: Ht 157.5 cm; Wt 90.7 kg
[~2020-08-07 10:46] MED LIST changes: +ACETAMINOPHEN-1 EAC1 ORAL; +AMOXICILLI250 MG/5 M ORAL; +MAGNESIUM CITR296 M1 PO; +VIBRAMYCIN100 MG ORAL
--- NOTE | 2020-08-07 11:05 | NUR ---
.ED Nurse Note: pt presents to ED with a lac to her R finger, pt states that she was using a kitchen knife and accidentally sliced her finger. pt states that she is not UTD with Tdap, pt reports mild pain, denies taking anything [employer]
[2020-08-07 11:07] VITALS: BP 136/62
--- NOTE | 2020-08-07 11:23 | Emergency Room Report ---
History of Present Illness General Chief Complaint: Laceration Source: Patient Present Illness HPI Patient sliced off the tip of her finger. There was a lot of blood. She was able to control it with pressure. Distal piece is dangling. Her tetanus is greater than 10 years. The pain is rated 4/10, steady and constant. She denies numbness. Patient denies diabetes. History of hypertension. Patient has a history of anxiety and feels very anxious about this. Patient denies exposure to Covid positive contacts. Allergies: Coded Allergies: No Known Allergies (Unverified , 09/22/12) COVID-19 Screening Contact w/high risk pt: No Experienced COVID-19 symptoms?: No COVID-19 Testing performed [employer]IGH [employer] FOOTBALL COACH: No Patient History Past Medical History: see triage record Past Surgical History: appy Social History: Denies: smoking Social History Narrative From home Reviewed Nursing Documentation: PMH: Agreed; PSxH: Agreed Nursing Documentation-PMH Hx Cardiac Problems: Yes Hx Hypertension: Yes Hx Pacemaker: No Hx Cancer: Yes - skin Hx Gastrointestinal Problems: Yes - constipation Hx Neurological Problems: No Hx Cerebrovascular Accident: No Hx Transient Ischemic Attacks: No Hx Dementia: No Hx Alzheimer's Disease: No Hx Parkinson's Disease: No Hx Meningitis: No Hx Encephalitis: No Hx Seizures: No Hx Epilepsy: No Hx Multiple Sclerosis: No Hx Cerebral Palsy: No Hx Amyotrophic Lat Sclerosis: No Hx Guillian-Lowell Syndrome: No Hx Paralysis: No Hx Peripheral Neuropathy: No Hx Spinal Cord Injury: No Hx Head Trauma: No Hx Traumatic Brain Injury: No Hx Memory Loss: No Hx Concentration Difficulty: No Hx Speech Problem: No Hx Tremors: No Hx Vertigo: No Hx Dizziness: Yes Hx Syncope: No Hx Headaches: No Hx Aphasia: No Hx Dysphasia: No Hx Numbness: No Hx Weakness: No Hx Fatigue: No Hx Neurologic Surgery: No Hx Brain Shunt: No Review of Systems Constitutional: Denies: fever Musculoskeletal: Denies: joint pain Skin: Reports: see HPI Neurological: Reports: see HPI Endocrine: Reports: see HPI Hematologic/Lymphatic: Reports: see HPI Physical Exam Vital Signs Date Time Temp Pulse Resp B/P (MAP) Pulse Ox O2 Delivery O2 Flow Rate FiO2 08/07/20 10:55 97.7 80 18 136/62 (86) 99 Room Air Sp02 EP Interpretation: reviewed, normal General Appearance: well appearing, no apparent distress, GCS 15, obese Head: normocephalic Eyes: bilateral eye normal inspection, bilateral eye PERRL, bilateral eye EOMI ENT: other - Wearing a mask Neck: normal inspection Respiratory: normal inspection Cardiovascular #1: regular rate, rhythm Cardiovascular #2: 2+ radial (R) - Good capillary fill Gastrointestinal: normal inspection Musculoskeletal: gait/station normal, normal range of motion Neurologic: alert, grossly normal Psychiatric: anxious Skin: other - Avulsed tip of right index finger extending into the nail slightly no active bleeding dangling skin Procedures Laceration/Wound Repair Laceration/Wound Repair : Consent: Verbal Wound Location: upper extremity - Right index finger Wound's Depth, Shape: superficial - Partially to nail Wound Length (cm): 0 - 0.5 Betadine Prep?: Yes Anesthesia: other - L.E.T. Wound Debrided: minimal Wound Repaired With: Dermabond Sterile Dressing Applied?: Yes Splint Applied?: No Patient Tolerated: Well Complications: None Medical Decision Making Diagnostic Impression: Primary Impression: Avulsion, finger tip Qualified Codes: S61.209A - Unspecified open wound of unspecified finger without damage to nail, initial encounter ER Course Patient presents with skin avulsion right index finger. Diagnosis is clinical. Patient needs tetanus and wound care. See procedure note. Patient tolerated procedure well. Discussed wound care with patient. Patient stable for outpatient observation and treatment. Last Vital Signs Date Time Temp Pulse Resp B/P (MAP) Pulse Ox O2 Delivery O2 Flow Rate FiO2 08/07/20 12:25 97.7 18 136/62 99 Room Air 08/07/20 10:55 80 Status: improved Disposition: HOME, SELF-CARE Condition: Improved Uziel Canales MD Aug 07, 2020 11:23
[2020-08-07] MEDS ORDERED: Acetaminophen 500mg (ES) tab ORAL ONE (11:30)
[2020-08-07] MEDS ORDERED: Tetanus/Diptheria/Pertussis IM ONE (11:30)
[2020-08-07] MEDS ORDERED: LET 3ml Soln TOPIC ONE (11:30)
--- NOTE | 2020-08-07 11:32 | NUR ---
ED Nurse Note: pt's R index finger soaking in L.e.t. solution per ERMD instruction, pt tolerating well, states finger is starting to feel numb
[2020-08-07 12:25] VITALS: BP 136/62
--- NOTE | 2020-08-07 12:25 | NUR ---
ED Nurse Note: Pt cleared by health care Provider for discharge. DC instructions was given and explained to pt and verbalized understanding of teachings. All medical deviecs such as ID band removed. Pt is AAO x4, ambulatory and left with all personal belongings.
== END 2020-08-07 12:30 | disposition home or self-care (01) ==
LOC: EMR 11:20
DX: S61.210A Laceration without foreign body of right index finger without damage to nail, initial encounter (principal); I11.9 Hypertensive heart disease without heart failure; Z85.828 Personal history of other malignant neoplasm of skin
CPT/HCPCS: 90471; 90715; 99282